=== PATIENT | female | born 1985 | race Caucasian/White ===

== ENCOUNTER → 2019-11-25 11:42 | Outpatient (CLI) | payer OTHER, SELFPAY ==
[2015-08-06 06:19] VITALS: BMI 19.9
[2019-11-29 15:18] LABS: HPV APTIMA, High Risk Negative (Negative)
[2019-11-29 15:19] LABS: HPV Reflexed? YES, CHARGE PATIENT
== END ==
PROVIDERS: PCP Family Medicine; Visit Provider Student in an Organized Health Care Education/Training Program
DX: Z12.4 Encounter for screening for malignant neoplasm of cervix (principal)
CPT/HCPCS: 87624; 88175; G0145

== ENCOUNTER → 2020-01-14 17:20 | Outpatient (CLI) | payer OTHER, SELFPAY ==
--- NOTE | 2020-01-14 16:50 | BI_ITS ---
MAMMOGRAPHY - BILATERAL SCREENING REASON FOR EXAM: Female, 34 years old. Routine annual screening examination. PERTINENT HISTORY: Non-contributory. TECHNIQUE: Digital bilateral breast frank (3D mammographic acquisition) in the CC and MLO projections. 2-D mediolateral oblique (MLO) and craniocaudad (CC) views of both breasts were obtained. CAD: Full Field Digital Mammography with Computer Added Detection was performed. COMPARISON: None. Baseline examination. FINDINGS: Breast Composition: The breasts are extremely dense, which lowers the sensitivity of mammography. There are no dominant masses or suspicious calcifications. No other significant abnormalities are identified. There has been no significant change since the prior study. BI/SCREEN MAMM (CAD) W/FRANK BILAT IMPRESSION: Stable bilateral screening mammogram. Yearly follow-up mammogram recommended. (A) ASSESSMENT CATEGORY: BIRADS Category 1: Negative. A letter regarding these results will be sent to the patient by the facility within 30 days. Approximately 10% of breast cancers are not detected by mammography. A normal mammogram should not delay biopsy of a clinically suspicious abnormality. [id number] Electronically Signed: Pedro Kinsey, at 8:23 EST , Service support ,
== END ==
PROVIDERS: PCP Family Medicine; Referring Provider Student in an Organized Health Care Education/Training Program; Visit Provider Student in an Organized Health Care Education/Training Program
DX: Z12.31 Encounter for screening mammogram for malignant neoplasm of breast (principal); Z80.3 Family history of malignant neoplasm of breast
CPT/HCPCS: 77063; 77067

== ENCOUNTER 2021-07-29 05:50 | Day surgery (SDC) | payer OTHER, SELFPAY ==
[2021-07-23 11:34] LABS: Anion Gap 4 (5-15); BUN 11 mg/dL (7-18); BUN/Creat Ratio 14.8 RATIO (10-20); Calcium,Total 9.3 mg/dL (8.5-10.1); Chloride 105 mmol/L (98-107); Creatinine, Serum 0.74 mg/dL (0.55-1.02); EST Glomerular Filtration Rate 93 mL/min (>60); Est Glom Filt Rate - Afr Amer 113 mL/min (>60); Glucose 86 mg/dL (74-106); Hematocrit 33.7 % (37-47); Hemoglobin 10.5 g/dL (12.0-15.0); Mean Corp Hgb Conc 31.2 g/dL (32-36); Mean Corpuscular Volume 86.6 fL (81-99); Mean Platelet Vol. 9.2 fl (6.2-12.0); Platelet Count 418 K/mm3 (150-450); Potassium 4.4 mmol/L (3.5-5.1); RBC Distribution Width CV 12.1 % (11.6-14.6); RBC Distribution Width SD 38.5 fl (35.1-43.9); Red Blood Count 3.89 M/mm3 (4.2-5.4); Sodium Level 139 mmol/L (136-145); White Blood Count 6.9 K/mm3 (4.4-11.0)
[2021-07-29] VITALS (7 sets, daily range): BP systolic 132–144; BP diastolic 80–100; PULSE 78–94; RESP 16; TEMP 36.8–37.6; O2SAT 98–100; BMI 20.2
[2021-07-29] MEDS: Lactated Ringers 1,000 ML 15 ML IV (06:10)
[2021-07-29 06:26] LABS: Internal QC Validated? YES +Cl - CLEAR BKGD; Pregnancy, Urine Negative Negative
[2021-07-29 07:16] LABS: Bedside Glucose 77 mg/dL (74-106)
--- NOTE | 2021-07-29 07:16 | PCM.HP.BLA ---
History and Physical Date of Admission: 07/29/21 HISTORY OF PRESENT ILLNESS: On 07/23/2021, Lien Bee, a 36 year old female 2 0 0 0 2, presented for: hysteroscopy, dilation and curettage, polypectomy with Symphion for abnormal uterine bleeding and endometrial polyp. MEDICAL HISTORY: 1. POTs ALLERGIES: NKDA, Avalox, Severe gi distress, Avelox, Severe nausea & vomiting, Augmentin and Hives and/or rash MEDICATIONS HISTORY: Patient is also takin. amitriptyline 25 mg tablet, One tablet by mouth @ hs 2. dicyclomine 20 mg tablet, One tablet by mouth 2 x daily as needed 3. ProAir HFA 90 mcg/actuation aerosol inhaler, 2 puffs each nostril as needed. SURGICAL HISTORY: 1. left elbow surgery 1993 2. hymenectomy 2001 3. 08/06/2015 Lap Bilateral tubal fulguration Archana Bee M.D. MENSTRUAL HISTORY: LMP Known?- DefiniteAmount/Duration - 7-8 days, Regularity - Regular, Frequency - monthly days, LMP - 07/06/21, Age Onset Menarche - 12 PAST PREGNANCIES: Total Pregnancies - 2; Full Term Pregnancies - 2; Premature - 0; Abortions, Induced - 0; Abortions, Spontaneous - 0; Ectopics - 0; Multiple Births - 0; Living Children - 2 FAMILY HISTORY: Hypertension, Hypothyroidism SOCIAL HISTORY: Alcohol Use - RARELY not while Smoking - Never Drug Use - denies REVIEW OF SYSTEMS: GENERAL - Denies fever, or chills SKIN - Denies skin changes EYES - Denies visual changes EARS - Denies difficulty hearing NOSE - Denies nasal congestion or bleeding MOUTH - Denies sore throat or difficulty swallowing NECK - Denies pain or swelling RESPIRATORY - Denies shortness of breath or wheezing CARDIOVASCULAR - Denies palpitations or chest pain GASTROINTESTINAL - Denies nausea, vomiting, diarrhea, constipation GENITOURINARY - Denies dysuria, frequency of urination, incontinence of urine MUSCULOSKELETAL - Denies joint or muscle pain NEUROLOGICAL - Denies localized numbness or weakness PSYCHIATRIC - Denies depression or anxiety ENDOCRINE - Denies heat or cold intolerance, weight loss or gain HEMATO-IMMUNOLOGIC - Denies excessive bleeding with cuts PHYSICAL EXAMINATION BP- 138/88 Sitting, Right arm, regular cuff Weight- 116.0 lbs Height- 63.5 inch BMI:20.22 CONSTITUTIONAL - NAD, well nourished, and well developed SKIN - No rash, lesions, or ulcers HEENT - Normocephalic, PERRLA, EOMI LUNGS - CTA x2 without wheezes, crackles or rales CARDIAC - Regular rate and rhythm without rubs, murmurs, or gallops ABDOMEN - Without hepatosplenomegaly, distention, masses, rebound, or guarding; normal bowel sounds; no hernias EXTREMITIES - No edema or calf tenderness NEUROLOGICAL - Cranial nerves II-XII grossly intact PSYCHIATRIC - A and O to time, place, person, mood and affect ASSESSMENT/PLAN: 1. Polyp Of Corpus Uteri Large endometrial polyp. With bleeding irregularities recommend removal via hysteroscopy, dilation and curettage, polypectomy with symphion R/B/A discussed. Risks include, but are limited to: risk of bleeding to the point of transfusion, injury to surrounding tissue (bowel/bladder/uterine perforation), VTE, ICU admission. Aware and consented.
--- NOTE | 2021-07-29 07:21 | OP.PCM_ITS ---
Report of Operation Date of Procedure: 07/29/21 Pre-Operative Diagnosis: Abnormal uterine bleeding, endometrial polyp Post-Operative Diagnosis: Abnormal uterine bleeding, endometrial polyp Surgery/Procedure Performed:: Hysteroscopy, dilation and curettage, polypectomy Description of Surgical Findings:: Normal external genitalia. Moderate uterine descensus. Large endometrial polyp. Type of Anesthesia: MAC Specimen's removed: Endometrial curettings Estimated Blood Loss (mL): 5cc Fluids Replaced: 700cc Description of Procedure: Indications/risk/benefits: 36-year-old female with abnormal uterine bleeding and large endometrial polyp plan for hysteroscopy, dilation curettage, polypectomy. All risk, benefits, alternatives discussed with patient. Risks include but are not limited to: Risk of bleeding twin transfusion, infection, injury to surrounding tissue including bowel/bladder/u terine perforation, VTE, ICU admission. Patient aware and consented. Procedure: Patient taken to the operating room, MAC anesthesia induced. Patient placed in the dorsal lithotomy position and prepped and draped in the usual sterile fashion. Weighted speculum placed in the posterior vagina and Ashby retractor used to visualize the cervix. Anterior lip of the cervix grasped with Allis clamp. Cervix gradually dilated. Hysteroscope placed through the cervical canal and inspection of the endometrial cavity completed with findings stated above. Symphion device utilized to resect endometrial polyp under direct visualization. Entire polyp was resected using device. Symphion and hysteroscope removed. Allis clamp removed from cervix, cervix hemostatic. Weighted speculum removed. At the end of the procedure all needle, lap, sponge counts were correct x2. Fluid deficit: 400cc UOP: 50cc Complications None
--- NOTE | 2021-07-29 07:22 | PCM.DC ---
Discharge Instructions Diet Discharge Diet: No restrictions Activity Discharge Activity: Return to Normal Activity and May Shower May resume sexual activity in: 2 weeks Weight Bearing Status: Weight bearing as tolerated Lifting Restrictions: None Dressing / Incision Call your doctor if you observe: Fever of 101 or Higher, Change in Color, Inability to urinate, Using more than 1 pad per hour, Shortness of breath, Dizziness, Swelling in the ankles, Chest pain and Calf discomfort Follow Up Care Please Follow Up With: Grace John DO When: 1-2 week postoperative visit Test Results: Test results from this visit will be discussed in further detail at your follow-up appointment, if applicable. Discharge Plan Admission Primary Reason for Your Visit: D&C Attending Provider: Grace John Primary Care Provider: Melody Hahn Discharge Orders/Prescriptions Prescriptions: New oxycodone 5 mg tablet 5 mg PO Q6H PRN (Reason: pain (scale score 7-10)) 1 Days Qty: 3 RF: 0 Continued acetaminophen 500 MG tablet 500 - 1,000 mg PO Q6H PRN PRN (Reason: Pain) RF: 0 Excedrin Tension Headache 1 EACH tablet 1 ea PO DAILY PRN PRN (Reason: Headache) RF: 0 ibuprofen 400 MG tablet 400 mg PO Q6H PRN PRN (Reason: Headache) RF: 0 L.acidoph, paracasei,B. lactis 1 EACH capsule 1 ea PO QODAY RF: 0 amitriptyline 25 mg Tablet 25 - 50 mg PO QHS RF: 0 cetirizine [Zyrtec] 10 mg Tablet 10 mg PO DAILY PRN (Reason: allergies) RF: 0 albuterol 90 mcg/actuation Aerosol 90 mcg INHALATION Q2H PRN PRN (Reason: Wheezing) RF: 0 Referrals / Follow Up: Melody Hahn MD [Primary Care Provider] - Disposition Disposition (needs filled in before D/C Order can be placed): Home, Self Care
--- NOTE | 2021-07-29 07:30 | EMB_PTH ---
PATIENT: SERENE REEVES LOC: [facility] – [place] U#:[id number] AGE/SX: 36/F ROOM: RE07/29/[address]: Dr. Grace John DO : 1985 BED: DIS: 07/29/2021 SPEC #: [id number] RECD: 07/29/21 10:09 STATUS: JIMBO REQ #: [id number] TOMAS: 07/29/21 07:[address]: Grace John DEPT: SURGICAL PATHOLOGY RECD BY: Lore Hawley ENTERED: 07/29/21 12:59 SP TYPE: ENDOM BX/C OTHR DR: Dr. Melody Hahn MD Tissues: Endometrium, NOS Procedures: Surgery Specimen Level IV HEADER OPERATION: Hysteroscopy, D & C Symphion, polypectomy PRE-OP DIAGNOSIS: Abnormal uterine bleeding, endometrial polyp TISSUE SUBMITTED: Endometrial curettings MICROSCOPIC DIAGNOSIS Endometrium, curettings: Secretory endometrium. AM:gretta 07/30/2021 MICROSCOPIC DESCRIPTION Slides are reviewed. GROSS DESCRIPTION Received in fixative is one container labeled with the patient's name and designated endometrial curettings. The specimen consists of multiple irregular fragments of pink-pérez soft tissue that in aggregate measure 6 x 3 x 0.2 cm. The specimen is totally submitted in three cassettes. / AM:gretta 07/29/2021 TC:5 CPT: 81903
[2021-07-29 08:26] LABS: Bedside Glucose 80 mg/dL (74-106)
== END 2021-07-29 09:05 | disposition home or self-care (01) ==
LOC: SDC 05:52 → AC 05:53
PROVIDERS: Anesthesiology; PCP Family Medicine; Referring Provider Student in an Organized Health Care Education/Training Program; Visit Provider Student in an Organized Health Care Education/Training Program
PROC: 0UB98ZZ Excision of Uterus, Via Natural or Artificial Opening Endoscopic (ICD-10-PCS; CPT 58558; principal; 2021-07-29 07:15)
DX: N84.0 Polyp of corpus uteri (principal); Z79.899 Other long term (current) drug therapy
CPT/HCPCS: 58558; 00952; 36415; 80048; 81025; 82962; 85027; 88305; J7120; J2405